=== PATIENT | male | born 1945 | race Caucasian/White ===

== ENCOUNTER 2019-08-12 12:09 | Observation (INO) | payer MEDICARE, OTHER ==
--- NOTE | 2019-08-12 12:33 | ED Physician Documentation ---
PD HPI HEADACHE - Stated complaint Stated Complaint: MORALEZ/DIZZY/RT SIDE NUMBNESS - Chief complaint Chief Complaint: General - History obtained from History obtained from: Patient - History of Present Illness Timing - onset: Today Timing - onset during: Rest Timing - duration: Hours (1.5) Timing - details: Abrupt onset Pain level now: 0 Location: Other ("Central") Associated symptoms: Nausea, Numbness, Vision changes. No: Fever, Vomiting, Weakness, Syncope, Eye pain Contributing factors: No: Anticoagulated Similar symptoms before: Work up / diagnostics Recently seen: Not recently seen - Additional information Additional information: This is a 74-year-old presents with complaints he was just sitting down working on his laptop about an hour and a half prior to presentation when he suddenly felt kind of dizzy and the right side of his face went numb as well as the right side of his lips and the right wrist and hand. He got up encounter just walked it off it lasted for maybe 5 minutes and then it was gone for 10 minutes and then it recurred when he sat back down so he became concerned enough that he decided he should drive himself here. Symptoms actually went away again and then while he sat down in triage they came back but when he got up to walk back here they resolved and he no longer has them. He does complain of a "central" headache that he took a couple aspirin for this morning. He is noted that if he pushes on his left eye that seems to make the headache better. He wears a monovision contact in the left eye and has noted today that the right eye is blurry. He also has some soreness in the left upper tooth. Patient reports similar symptoms 5 or 6 years ago when he had a TIA that they related to him ove r use a indomethacin. Today he noticed no weakness in the arm or drooping of the face. He has not had any chest pain or palpitations. No shortness of breath. His father did have a stroke at the age of 60. Review of Systems Constitutional: denies: Fever Eyes: reports: Decreased vision Nose: denies: Congestion Throat: denies: Sore throat Cardiac: denies: Chest pain / pressure, Palpitations, Pedal edema Respiratory: denies: Dyspnea, Cough GI: reports: Nausea. denies: Abdominal Pain, Vomiting, Diarrhea : denies: Dysuria Skin: denies: Rash Musculoskeletal: denies: Neck pain Neurologic: reports: Numbness, Headache. denies: Generalized weakness, Focal weakness, Near syncope, Syncope, Confused, Altered mental status, Head injury Endocrine: reports: Other (He is not diabetic) Immunocompromised: denies: Immunocompromised PD PAST MEDICAL HISTORY - Past Surgical History Past Surgical History: No - Present Medications Home Medications: Ambulatory Orders Medication Instructions Recorded Confirmed Allopurinol 100 mg PO DAILY 05/22/14 05/22/14 - Allergies Allergies/Adverse Reactions: Allergies Allergy/AdvReac Type Severity Reaction Status Date / Time No Known Drug Allergies Allergy Verified 08/12/19 12:15 - Social History Does the pt smoke?: No Smoking Status: Never smoker Does the pt drink ETOH?: No Does the pt have substance abuse?: No - Immunizations Immunizations are current?: Yes - POLST Patient has POLST: No PD ED PE NORMAL - Vitals Vital signs reviewed: Yes - General General: Alert and oriented X 3, No acute distress, Well developed/nourished - HEENT HEENT: Atraumatic, PERRL, EOMI, Moist mucous membranes, Pharynx benign - Neck Neck: Supple, no meningeal sign, No adenopathy, Thyroid normal, No bruit - Cardiac Cardiac: RRR, No murmur, Strong equal pulses - Respiratory Respiratory: No respiratory distress, Clear bilaterally - Abdomen Abdomen: Normal bowel sounds, Soft - Derm Derm: Normal color, Warm and dry, No rash - Extremities Extremities: No deformity, No edema - Neuro Neuro: Alert and oriented X 3, feed manager 2-12 intact, No motor deficit, No sensory deficit, Normal speech, Other (Vision is intact in the right eye he is able to count fingers and visual montgomery are intact in all 4 quadrants.) - Psych Psych: Normal mood, Normal affect Results - Vitals Vitals: Vital Signs - 24 hr 08/12/19 08/12/19 08/12/19 12:15 12:29 12:51 Temperature 36.5 C Heart Rate 69 74 60 Respiratory 16 23 17 Rate Blood Pressure 187/86 H 190/114 H 183/79 H O2 Saturation 100 97 98 08/12/19 08/12/19 08/12/19 13:00 13:30 14:00 Temperature Heart Rate 72 66 59 L Respiratory 17 16 13 Rate Blood Pressure 160/80 H 167/81 H 167/93 H O2 Saturation 98 97 98 08/12/19 08/12/19 14:30 14:46 Temperature Heart Rate 53 L 61 Respiratory 16 14 Rate Blood Pressure 139/78 H 144/80 H O2 Saturation 97 99 Oxygen O2 Source Room air - EKG (time done) 1232 Rate: Rate (enter#) (67) Rhythm: Atrial flutter, Atrial fibrillation Intervals: No: Wide QRS Ischemia: Non specific changes Compare to prior EKG: Old EKG unavailable - Labs Labs: Laboratory Tests 08/12/19 08/12/19 08/12/19 12:40 12:40 12:40 WBC 7.6 RBC 5.54 Hgb 16.3 Hct 49.6 MCV 89.5 MCH 29.4 MCHC 32.9 RDW 13.9 Plt Count 239 MPV 9.6 Neut # (Auto) 5.6 Lymph # (Auto) 1.3 L Lander # (Auto) 0.6 Eos # (Auto) 0.1 Baso # (Auto) 0.0 Absolute Nucleated RBC 0.00 Nucleated RBC % 0.0 PT 11.7 INR 1.0 Sodium 140 Potassium 4.5 Chloride 104 Carbon Dioxide 27 Anion Gap 9.0 BUN 20 Creatinine 1.8 H Estimated GFR (MDRD) 37 L Glucose 93 Calcium 9.0 Total Bilirubin 0.8 AST 28 ALT 26 Alkaline Phosphatase 97 Troponin I High Sens Total Protein 7.8 Albumin 4.3 Globulin 3.5 Albumin/Globulin Ratio 1.2 Lipase 49 08/12/19 12:40 WBC RBC Hgb Hct MCV MCH MCHC RDW Plt Count MPV Neut # (Auto) Lymph # (Auto) Lander # (Auto) Eos # (Auto) Baso # (Auto) Absolute Nucleated RBC Nucleated RBC % PT INR Sodium Potassium Chloride Carbon Dioxide Anion Gap BUN Creatinine Estimated GFR (MDRD) Glucose Calcium Total Bilirubin AST ALT Alkaline Phosphatase Troponin I High Sens 2.8 Total Protein Albumin Globulin Albumin/Globulin Ratio Lipase - Rads (name of study) CXR Radiology: See rad report (neg acute) PD MEDICAL DECISION MAKING - ED course Complexity details: reviewed results, re-evaluated patient, d/w patient ED course: Patient was sent immediately for CT of the head which was read as negative acute stroke and on his return from the CT his symptoms had completely resolved. Labs appear normal. His EKG interestingly looks like A. fib flutter but on the monitor at the bedside when I went in to discuss results with him he was in a sinus rhythm. Chest x-ray was clear. Will discuss with the hospitalist for admission for TIA observation. Departure - Departure Disposition: ED Place in Observation Clinical Impression: Transient ischemic attack Qualifiers: Transient cerebral ischemia type: other Qualified Code(s): G45.8 - Other transient cerebral ischemic attacks and related syndromes Condition: Good
[2019-08-12 12:50] LABS: BASOPHILS % (AUTO) 0.3 %; EOSINOPHILS # (AUTO) 0.1 10^3/uL (0.0-0.7); EOSINOPHILS % (AUTO) 0.8 %; HGB - HEMOGLOBIN 16.3 g/dL (14.0-18.0); LYMPHOCYTES # (AUTO) 1.3 10^3/uL (1.5-3.5); LYMPHOCYTES % (AUTO) 17.4 %; MEAN CORPUSCULAR HEMOGLOBIN 29.4 pg (27.0-31.0); MEAN CORPUSCULAR HGB CONC 32.9 g/dL (32.0-36.0); MEAN CORPUSCULAR VOLUME 89.5 fL (80.0-94.0); MEAN PLATELET VOLUME 9.6 fL (7.4-11.4); MONOCYTES # (AUTO) 0.6 10^3/uL (0.0-1.0); MONOCYTES % (AUTO) 7.5 %; NEUTROPHILS # (AUTO) 5.6 10^3/uL (1.5-6.6); NEUTROPHILS % (AUTO) 73.5 %; PLT - PLATELET COUNT 239 10^3/uL (130-450); RED BLOOD COUNT 5.54 10^6/uL (4.70-6.10); RED CELL DISTRIBUTION WIDTH 13.9 % (12.0-15.0); WHITE BLOOD COUNT 7.6 x10^3/uL (4.8-10.8)
[2019-08-12 12:53] LABS: PT - PROTHROMBIN TIME 11.7 secs (9.9-12.6)
[2019-08-12 13:01] LABS: ALBUMIN 4.3 g/dL (3.2-5.5); ALBUMIN/GLOBULIN RATIO 1.2 (1.0-2.2); BILIRUBIN,TOTAL 0.8 mg/dL (0.2-1.0); CREATININE 1.8 mg/dL (0.6-1.2); TOTAL PROTEIN 7.8 g/dL (6.7-8.2)
--- NOTE | 2019-08-12 13:10 | XRAY Report ---
Reason: chest pain Procedure Date: 08/12/2019 Accession Number: [id number] / [id number] Procedure: XR - Chest 1 View X-Ray CPT Code: 95313 Final Report FULL RESULT: EXAM: CHEST RADIOGRAPHY EXAM DATE: 08/12/2019 12:47 PM. CLINICAL HISTORY: Chest pain. COMPARISON: None. TECHNIQUE: 1 view. FINDINGS: Lungs/Pleura: No focal opacities evident. No pleural effusion. No pneumothorax. Mediastinum: Within exam limitations, the cardiomediastinal contour is normal. Other: There is a left clavicle fracture with evidence of bony remodeling. IMPRESSION: Negative for an acute cardiopulmonary abnormality. RADIA
--- NOTE | 2019-08-12 13:23 | CT Report ---
Reason: R lip numbness Procedure Date: 08/12/2019 Accession Number: [id number] / [id number] Procedure: CT - HEAD WO CPT Code: Final Report FULL RESULT: EXAM: CT HEAD EXAM DATE: 08/12/2019 12:58 PM. CLINICAL HISTORY: R lip numbness. COMPARISON: HEAD W/O 05/22/2014. TECHNIQUE: Multiaxial CT images were obtained from the foramen magnum to the vertex. Reformats: Sagittal and coronal. IV contrast: None. In accordance with CT protocol optimization, one or more of the following dose reduction techniques were utilized for this exam: automated exposure control, adjustment of mA and/or KV based on patient size, or use of iterative reconstructive technique. FINDINGS: Parenchyma: There is patchy subcortical and periventricular low density white matter changes, likely microangiopathic. Evidence of a small lacunar infarct adjacent to the left frontal horn. No intraparenchymal hemorrhage. No evidence of mass, midline shift, or CT findings of infarction. Hammer-white differentiation is distinct. Extraaxial Spaces: Stable. No subdural or epidural collections identified. Ventricles: Normal in size and position. Sinuses and Orbits: Imaged paranasal sinuses, orbits, and mastoids show no significant abnormality. Bones: No evidence of fracture or calvarial defect. IMPRESSION: No acute intracranial hemorrhage or mass-effect. Mild white matter microangiopathic changes, chronic. RADIA
[2019-08-12] MEDS ORDERED: oxyCODONE 5 MG TABLET PO PRN (14:47)
[2019-08-12] MEDS ORDERED: ONDANSETRON ODT 4 MG TABLET TL PRN (14:47)
[2019-08-12] MEDS ORDERED: SODIUM CHLORIDE FLUSH 0.9% 10 ML SYRINGE IVP PRN (14:47)
[2019-08-12] MEDS ORDERED: ACETAMINOPHEN 325 MG TABLET PO PRN (14:47)
[2019-08-12] MEDS ORDERED: ONDANSETRON 4 MG/2 ML VIAL IVP PRN (14:47)
[2019-08-12] MEDS ORDERED: IOVERSOL 320 100 ML VIAL IVP ONE ×2 (14:59→15:48)
[2019-08-12] MEDS ORDERED: ACETAMINOPHEN 325 MG TABLET PO STA (15:14)
--- NOTE | 2019-08-12 16:15 | CT Report ---
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 CT SCAN HEAD WITH CONTRAST. EXAM DATE: 08/12/2019 03:36 PM. CLINICAL HISTORY: Tia w old lacunar infarct. COMPARISON: HEAD W/O 08/12/2019 12:49 PM NECK ANGIO 08/12/2019 3:28 PM. TECHNIQUE: Routine axial helical CTA imaging was performed from the aortic arch through the [place]. Routine axial CT imaging of the head was performed following contrast administration. Reconstructions: Routine multiplanar 3D MIP reconstructions. IV contrast: 80 mL Optiray 320. NASCET Criteria are used for stenosis measurements. In accordance with CT protocol optimization, one or more of the following dose reduction techniques were utilized for this exam: automated exposure control, adjustment of mA and/or KV based on patient size, or use of iterative reconstructive technique. FINDINGS: CT SCAN HEAD: Noncontrast CT head has been dictated separately. No abnormal enhancement on the postcontrast CT head. CT ANGIOGRAM EXTRACRANIAL CIRCULATION: The visualized arch is unremarkable. Great vessels are patent and unremarkable. Right Carotid: Soft plaque right carotid bifurcation, maximal narrowing 20-30%, mild by NASCET criteria . The common carotid, internal carotid, and external carotid arteries are patent. No evidence of acute dissection Left Carotid: Soft plaque left carotid bifurcation and proximal cervical left ICA, maximal narrowing 20-30%, mild by NASCET criteria The common carotid, internal carotid, and external carotid arteries are patent. No evidence of acute dissection Vertebrals: The vertebrobasilar system shows no stenosis, dissection, aneurysm, or significant atherosclerotic disease. CT ANGIOGRAM INTRACRANIAL CIRCULATION: RIGHT: Internal Carotid artery: Mild atherosclerosis right carotid siphon, no hemodynamically significant narrowing. Anterior Cerebral Artery: Patent without significant stenosis, aneurysm, or vascular malformation. Middle Cerebral Artery: Patent without significant stenosis, aneurysm, or vascular malformation. Posterior Cerebral Artery: Patent without significant stenosis, aneurysm, or vascular malformation. Posterior Communicating Artery: Not visualized, aplastic versus markedly hypoplastic LEFT: Internal Carotid artery: Moderate atherosclerosis left carotid siphon, maximal narrowing approximately 40-50%. Anterior Cerebral Artery: Patent without significant stenosis, aneurysm, or vascular malformation. Middle Cerebral Artery: Patent without significant stenosis, aneurysm, or vascular malformation. Posterior Cerebral Artery: Patent without significant stenosis, aneurysm, or vascular malformation. Posterior Communicating Artery: Not visualized, aplastic versus markedly hypoplastic CENTRAL: Anterior Communicating Artery: Patent. No aneurysm. The dural venous sinuses are patent. Other: Visualized lung apices are clear. Moderate multilevel degenerative spondylosis. The visualized soft tissues of the neck demonstrate no acute abnormality. IMPRESSION: CT HEAD: 1. Noncontrast CT head dictated separately. 2. No abnormal enhancement on the postcontrast CT head. CTA NECK: 1. No CTA evidence of high-grade stenosis, large vessel occlusion, acute dissection, aneurysm, or vascular malformation within extracranial arteries. 2. Soft plaque right carotid bifurcation, maximal narrowing 20-30%, mild by NASCET criteria . 3. Soft plaque left carotid bifurcation and proximal cervical left ICA, maximal narrowing 20-30%, mild by NASCET criteria CTA HEAD: 1. No CTA evidence of high-grade stenosis, large vessel occlusion, acute dissection, aneurysm, or vascular malformation within intracranial arteries. 2. Moderate atherosclerosis left carotid siphon, maximal narrowing approximately 40-50%. RADIA
--- NOTE | 2019-08-12 16:15 | CT Report ---
Reason: tia w old lacunar infacrt Procedure Date: 08/12/2019 Accession Number: [id number] / [id number] Procedure: CT - ANGIO HEAD W/WO CPT Code: Final Report FULL RESULT: EXAM: CT ANGIOGRAM HEAD AND NECK. CT SCAN HEAD WITH CONTRAST. EXAM DATE: 08/12/2019 03:36 PM. CLINICAL HISTORY: Tia w old lacunar infarct. COMPARISON: HEAD W/O 08/12/2019 12:49 PM NECK ANGIO 08/12/2019 3:28 PM. TECHNIQUE: Routine axial helical CTA imaging was performed from the aortic arch through the [place]. Routine axial CT imaging of the head was performed following contrast administration. Reconstructions: Routine multiplanar 3D MIP reconstructions. IV contrast: 80 mL Optiray 320. NASCET Criteria are used for stenosis measurements. In accordance with CT protocol optimization, one or more of the following dose reduction techniques were utilized for this exam: automated exposure control, adjustment of mA and/or KV based on patient size, or use of iterative reconstructive technique. FINDINGS: CT SCAN HEAD: Noncontrast CT head has been dictated separately. No abnormal enhancement on the postcontrast CT head. CT ANGIOGRAM EXTRACRANIAL CIRCULATION: The visualized arch is unremarkable. Great vessels are patent and unremarkable. Right Carotid: Soft plaque right carotid bifurcation, maximal narrowing 20-30%, mild by NASCET criteria . The common carotid, internal carotid, and external carotid arteries are patent. No evidence of acute dissection Left Carotid: Soft plaque left carotid bifurcation and proximal cervical left ICA, maximal narrowing 20-30%, mild by NASCET criteria The common carotid, internal carotid, and external carotid arteries are patent. No evidence of acute dissection Vertebrals: The vertebrobasilar system shows no stenosis, dissection, aneurysm, or significant atherosclerotic disease. CT ANGIOGRAM INTRACRANIAL CIRCULATION: RIGHT: Internal Carotid artery: Mild atherosclerosis right carotid siphon, no hemodynamically significant narrowing. Anterior Cerebral Artery: Patent without significant stenosis, aneurysm, or vascular malformation. Middle Cerebral Artery: Patent without significant stenosis, aneurysm, or vascular malformation. Posterior Cerebral Artery: Patent without significant stenosis, aneurysm, or vascular malformation. Posterior Communicating Artery: Not visualized, aplastic versus markedly hypoplastic LEFT: Internal Carotid artery: Moderate atherosclerosis left carotid siphon, maximal narrowing approximately 40-50%. Anterior Cerebral Artery: Patent without significant stenosis, aneurysm, or vascular malformation. Middle Cerebral Artery: Patent without significant stenosis, aneurysm, or vascular malformation. Posterior Cerebral Artery: Patent without significant stenosis, aneurysm, or vascular malformation. Posterior Communicating Artery: Not visualized, aplastic versus markedly hypoplastic CENTRAL: Anterior Communicating Artery: Patent. No aneurysm. The dural venous sinuses are patent. Other: Visualized lung apices are clear. Moderate multilevel degenerative spondylosis. The visualized soft tissues of the neck demonstrate no acute abnormality. IMPRESSION: CT HEAD: 1. Noncontrast CT head dictated separately. 2. No abnormal enhancement on the postcontrast CT head. CTA NECK: 1. No CTA evidence of high-grade stenosis, large vessel occlusion, acute dissection, aneurysm, or vascular malformation within extracranial arteries. 2. Soft plaque right carotid bifurcation, maximal narrowing 20-30%, mild by NASCET criteria . 3. Soft plaque left carotid bifurcation and proximal cervical left ICA, maximal narrowing 20-30%, mild by NASCET criteria CTA HEAD: 1. No CTA evidence of high-grade stenosis, large vessel occlusion, acute dissection, aneurysm, or vascular malformation within intracranial arteries. 2. Moderate atherosclerosis left carotid siphon, maximal narrowing approximately 40-50%. RADIA
--- NOTE | 2019-08-12 16:31 | MRI Report ---
Reason: tia w old lacunar infarct Procedure Date: 08/12/2019 Accession Number: [id number] / [id number] Procedure: MRI - Brain W/O CPT Code: Final Report FULL RESULT: EXAM: MRI BRAIN WITHOUT CONTRAST EXAM DATE: 08/12/2019 04:00 PM. CLINICAL HISTORY: 74-year-old male with episode of right-sided weakness and numbness. 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 COMPARISON: CT head and neck 08/12/2019 TECHNIQUE: Multiplanar, multisequence T1-weighted and fluid-sensitive MR sequences of the brain were performed. Sequences optimized for routine evaluation. Other: None. IV Contrast: None. FINDINGS: Brain Volume: Normal for age. Parenchyma/Dura: There is a 3 mm focus of high DWI signal in the posterior left occipital lobe (series 505 image 128) with no low ADC correlate, may represent a small subacute infarct. No MRI evidence of acute infarct. Scattered T2/FLAIR hyperintense periventricular and deep white matter lesions within cerebral hemispheres bilaterally. No parenchymal foci of susceptibility artifact. No evidence of acute intracranial hemorrhage. Ventricles/Cisterns: No hydrocephalus. No abnormal extra-axial fluid collection or hemorrhage. Orbits: Symmetric and unremarkable. Sella [place]: The pituitary gland, cavernous sinuses, suprasellar cistern and optic chiasm are unremarkable. IAC: Symmetric and unremarkable. Vasculature: Normal signal flow void is seen in the major arterial structures at the skull base. Sinuses: No acute appearing sinus disease. Bones: No focal pathologic appearing marrow signal changes. Other: None. IMPRESSION: 1. There is a 3 mm focus of high DWI signal in the posterior left occipital lobe (series 505 image 128) with no low ADC correlate, may represent a small subacute infarct. 2. No MRI evidence of acute infarct. 3. Scattered T2/FLAIR hyperintense periventricular and deep white matter lesions within cerebral hemispheres bilaterally. These lesions are nonspecific, may represent sequela of chronic microangiopathy. RADIA
[2019-08-12] MEDS: SODIUM CHLORIDE FLUSH 0.9% 10 ML SYRINGE IVP SCH (16:49)
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
[2019-08-12] MEDS ORDERED: ATORVASTATIN 40 MG TABLET PO SCH (21:00)
[2019-08-12] MEDS: amLODIPine 5 MG TABLET PO SCH (21:43)
[2019-08-13] MEDS: SODIUM CHLORIDE FLUSH 0.9% 10 ML SYRINGE IVP SCH ×2 (00:27→08:52)
[2019-08-13 04:50] LABS: BASOPHILS % (AUTO) 0.4 %; EOSINOPHILS # (AUTO) 0.1 10^3/uL (0.0-0.7); EOSINOPHILS % (AUTO) 1.6 %; HGB - HEMOGLOBIN 15.5 g/dL (14.0-18.0); LYMPHOCYTES # (AUTO) 1.7 10^3/uL (1.5-3.5); LYMPHOCYTES % (AUTO) 24.4 %; MEAN CORPUSCULAR HEMOGLOBIN 29.1 pg (27.0-31.0); MEAN CORPUSCULAR HGB CONC 32.7 g/dL (32.0-36.0); MEAN CORPUSCULAR VOLUME 88.9 fL (80.0-94.0); MEAN PLATELET VOLUME 9.6 fL (7.4-11.4); MONOCYTES # (AUTO) 0.7 10^3/uL (0.0-1.0); MONOCYTES % (AUTO) 10.6 %; NEUTROPHILS # (AUTO) 4.4 10^3/uL (1.5-6.6); NEUTROPHILS % (AUTO) 62.4 %; PLT - PLATELET COUNT 238 10^3/uL (130-450); RED BLOOD COUNT 5.33 10^6/uL (4.70-6.10); RED CELL DISTRIBUTION WIDTH 13.9 % (12.0-15.0)
[2019-08-13 05:04] LABS: ALBUMIN 3.7 g/dL (3.2-5.5); ALBUMIN/GLOBULIN RATIO 1.2 (1.0-2.2); BILIRUBIN,TOTAL 1.2 mg/dL (0.2-1.0); CALCIUM 8.6 mg/dL (8.5-10.3); CREATININE 1.7 mg/dL (0.6-1.2); TOTAL PROTEIN 6.8 g/dL (6.7-8.2)
[2019-08-13 05:10] LABS: CHOLESTEROL 218 mg/dL; HDL CHOLESTEROL 31 mg/dL; LDL CHOLESTEROL,CALCULATED 142 mg/dL; LDL/HDL RATIO 4.6 (<3.6); VLDL CHOLESTEROL 45 mg/dL
[2019-08-13] MEDS: amLODIPine 5 MG TABLET PO SCH (08:52)
[2019-08-13] MEDS ORDERED: ASPIRIN CHEW 81 MG TABLET PO SCH (09:00)
[2019-08-13 11:48] VITALS: BP 137/72
--- NOTE | 2019-08-13 13:04 | Discharge Plan ---
Discharge Plan Problem Reviewed?: Yes Disposition: Home, Self Care Condition: Stable Prescriptions: amLODIPine [Norvasc] 5 mg PO DAILY #10 tablet Aspirin Chewable [St Frank Aspirin] 81 mg PO DAILY #10 tablet Atorvastatin [Lipitor] 80 mg PO QPM #20 tablet Diet: Regular Activity Restrictions: Activity as Tolerated Shower Restrictions: No (fall precaution) Instruction Topics: Atherosclerosis Aspirin, Atorvastatin tablets, Amlodipine Health Concerns: TIA, hyperlipidemia Plan of Treatment: Your MRI study indicate you may have subacute 3 mm brain infarct. your blood workup indicate you have hyperlipidemia, and slight elevated BP. you have no any focal neurological deficits now. you are prescribed aspirin, lipitor and BP meds Norvasc for management of above medical issues. advise you continue loss of weight and keep active. Care Goals: stabilization and improvement of your medical conditions Assessment: discussed with the care plan, you understood that. Additional Instructions or Follow Up instructions: you may followup your PCP in one week. Should your symptoms return or worsen, you may present ER or call 911 for help. No Smoking: If you smoke, Please STOP! Call for help. Follow-up with: Vinicius Jeffers [Primary Care Provider] -
--- NOTE | 2019-08-13 13:19 | DISCHARGE SUMMARY ---
Discharge Summary Discharge Date: 08/13/19 Condition at Discharge: Stable Discharge Disposition: 01 Home, Self Care Discharge Facility Name: home - DIAGNOSES Admission Diagnoses: 1, TIA 2, HTN 3, HLD 4, tremor Discharge Diagnoses with Status of Each Condition: 1, TIA resolved. pt denies any more numbness. pt has no any focal neurological deficits. pt can walk, speak without limitation now. MRI of brain reveals 3 mm subacute infarct in the posterior left occipital lobe. pt is prescribed Aspirin and Lipitor. pt's ECHO is unremarkable. 2, HTN stable. pt is prescribe Norvasc 3, HLD stable, pt is prescribed Lipitor 4, tremor stable. - HPI History of Present Illness: 74-yrs-old male with hx of TIA, HLD, HTN, who present ER complaint numbness on his right side of his face as well as his right side of his lips, then he felt numbness of his right side hand and a headache. All these symptoms was running away in 5 minutes. pt was admitted for TIA workup - HOSPITAL COURSE Hospital Course: pt was admitted for numbness on his right side of his face as well as his right side of his lips, then he felt numbness of his right side hand and a headache. All these symptoms was running away in 5 minutes. pt has no more focus deficits after treated in hospital. pt was prescribed Aspirin, Lipitor, and Norvasc. MRI of brain reveals 3 mm subacute infarct in the posterior left occipital lobe. pt's ECHO is unremarkable. Pt's CTA of neck and brain was unremarkable as well. The detail hospital course is as the below 1, TIA resolved. pt denies any more numbness. pt has no any focal neurological def icits. pt state he can walk, speak without limitation now. MRI of brain reveals 3 mm subacute infarct in the posterior left occipital lobe. pt is prescribed Aspirin and Lipitor. pt's ECHO is unremarkable. 2, HTN stable. pt is prescribe Norvasc 3, HLD stable, pt is prescribed Lipitor 4, tremor stable. - ALLERGIES Allergies/Adverse Reactions: Allergies Allergy/AdvReac Type Severity Reaction Status Date / Time No Known Drug Allergies Allergy Verified 08/12/19 12:15 - MEDICATIONS Home Medications: Ambulatory Orders Medication Instructions Recorded Confirmed Aspirin Chewable [St Frank 81 mg PO DAILY #10 tablet 08/13/19 Aspirin] Atorvastatin [Lipitor] 80 mg PO QPM #20 tablet 08/13/19 amLODIPine [Norvasc] 5 mg PO DAILY #10 tablet 08/13/19 - PHYSICAL EXAM AT DISCHARGE General Appearance: positive: No acute distress, Alert. negative: Lethargic Eyes Bilateral: positive: Normal inspection, PERRL, EOMI, No lid inflammation ENT: positive: ENT inspection nml, Pharynx nml, No signs of dehydration. negative: Purulent nasal drainage Neck: positive: Nml inspection, Thyroid nml, No JVD, Trachea midline. negative: Thyromegaly, Lymphadenopathy (R), Lymphadenopathy (L), Stiff neck, Tracheal de viation Respiratory: positive: Chest non-tender, No respiratory distress, Breath sounds nml. negative: Wheezes, Rales, Rhonchi Cardiovascular: positive: Regular rate & rhythm, No murmur, No gallop. negative: Irregularly irregular, Extrasystoles, Tachycardia, Bradycardia, JVD present, Systolic murmur, Diastolic murmur Peripheral Pulses: positive: 2+ Abdomen: positive: Non-tender, No organomegaly, Nml bowel sounds, No distention. negative: Tenderness, Guarding, Rebound Back: positive: Nml inspection. negative: CVA tenderness (R), CVA tenderness (L) Skin: positive: Color nml, No rash, Warm, Dry. negative: Cyanosis, Diaphoresis, Pallor, Skin rash Extremities: positive: Non-tender, Full ROM, Nml appearance. negative: Calf tenderness, Hai's sign/cords Neurologic/Psychiatric: positive: Oriented x3, Motor nml, Sensation nml, Mood/affect nml. negative: Weakness, Sensory loss, Facial droop, Slurred/abnml speech, Depressed mood/affect - LABS Result Diagrams: 08/13/19 04:36 08/13/19 04:36 - FOLLOW UP Follow Up: Your MRI study indicate you may have subacute 3 mm brain infarct. your blood workup indicate you have hyperlipidemia, and slight elevated BP. you have no any focal neurological deficits now. you are prescribed aspirin, lipitor and BP meds Norvasc for management of above medical issues. advise you continue loss of weight and keep active. you may followup your PCP in one week. Should your symptoms return or worsen, you may present ER or call 911 for help. - TIME SPENT Time Spent in Discharge (Minutes): 50
== END 2019-08-13 13:52 | disposition home or self-care (01) ==
LOC: ED 12:09 → MS3 14:47
PROVIDERS: ADMIT Specialist; ATTEND Nurse Practitioner Gerontology
DX: G45.9 Transient cerebral ischemic attack, unspecified (principal); I12.9 Hypertensive chronic kidney disease with stage 1 through stage 4 chronic kidney disease, or unspecified chronic kidney disease; N18.9 Chronic kidney disease, unspecified; E78.5 Hyperlipidemia, unspecified; R25.1 Tremor, unspecified; Z86.73 Personal history of transient ischemic attack (TIA), and cerebral infarction without residual deficits; Z82.3 Family history of stroke
CPT/HCPCS: 36415; 70496; 70498; 70551; 71045; 80053; 80061; 83690; 84484; 85025; 85610; 93005; 93306; 99285; A9270; G0378; Q9967; 70450; 83721